=== PATIENT | male | born 1960 | race Hispanic/Latino ===

== ENCOUNTER 2017-08-24 15:57 | Inpatient (IN) | payer SELFPAY ==
[~2017-08-24] VITALS: Ht 172.7 cm; Wt 81.5 kg
[2017-08-24 16:23] LABS: BASOPHILS % (AUTO) 0.4 % (0.0-5.0); EOSINOPHILS % (AUTO) 0.2 % (0.0-8.0); HEMATOCRIT 41.4 % (42-54); LYMPHOCYTES % (AUTO) 5.6 % (21.0-51.0); MEAN CORPUSCULAR HEMOGLOBIN 30.6 pg (27.0-33.0); MEAN CORPUSCULAR HGB CONC 34.1 g/dL (32.0-36.0); MEAN CORPUSCULAR VOLUME 89.9 fL (79-99); MONOCYTES % (AUTO) 5.2 % (3.0-13.0); NEUTROPHILS % (AUTO) 88.6 % (40.0-77.0); PLATELET COUNT (AUTO) 149 K/uL (130-400); RED BLOOD CELL COUNT(AUTO) 4.61 MIL/uL (4.50-6.20); WHITE BLOOD COUNT (AUTO) 8.9 K/uL (4.8-10.8)
[2017-08-24 16:33] LABS: CARBON DIOXIDE 27 mmol/L (21-32); CHLORIDE 103 mmol/L (101-111); CREATININE 1.1 mg/dL (0.5-1.5); GLOMERULAR FILTR. RATE CALC 74 mL/min (>60); GLUCOSE,RANDOM 110 mg/dL (70-105); POTASSIUM 3.6 mmol/L (3.5-5.1); SODIUM SERUM 139 mmol/L (136-145); UREA NITROGEN, BLOOD 16 mg/dL (7-18)
[2017-08-24 16:37] LABS: APPEARANCE,URINE Clear (CLEAR); BILIRUBIN,URINE Negative (NEGATIVE); COLOR,URINE Yellow (YELLOW); GLUCOSE, URINE (UA) Negative (NEGATIVE); KETONES,URINE Negative (NEGATIVE); LEUKOCYTE ESTERASE ,URINE Large (NEGATIVE); NITRATE,URINE Negative (NEGATIVE); OCCULT BLOOD,URINE Moderate (NEGATIVE); PROTEIN,URINE Negative (NEGATIVE); UROBILINOGEN,URINE 0.2 mg/dL (0.2-1.0)
[2017-08-24 16:46] LABS: BACTERIA,URINE Few /HPF (None Seen); SQUAMOUS EPITHELIAL CELL,UR Rare /HPF (0-2)
[2017-08-24 16:47] LABS: MUCUS,URINE Rare LPF (None Seen)
[2017-08-24 16:48] LABS: ALANINE AMINOTRANSFERASE 34 U/L (12-78); ASPARTATE AMINOTRANSFERASE 24 U/L (10-37); BILIRUBIN,TOTAL 0.7 mg/dL (0.2-1.0); CREATINE KINASE MB 1.7 ng/mL (0.5-3.6); CREATINE KINASE, TOTAL 218 U/L (21-232); MYOGLOBIN 50 ng/mL (10-92); TOTAL PROTEIN, SERUM 7.6 g/dL (6.0-8.3); TROPONIN I < 0.04 ng/mL (0.00-0.06)
[2017-08-24 16:51] LABS: INR 0.93 (0.85-1.15); PARTIAL THROMBOPLASTIN TIME 27.3 SEC (26.3-35.5); PROTHROMBIN TIME 9.8 SEC (9.6-11.6)
[2017-08-24] MEDS ORDERED: SODIUM CHLORIDE 0.9% 50 ML IV ONE (17:57)
[2017-08-24] MEDS ORDERED: CEFTRIAXONE SODIUM 1 GM ONE (17:57)
[2017-08-24] MEDS ORDERED: ACETAMINOPHEN 325 MG TAB ONE (18:06)
[2017-08-24] MEDS: MORPHINE SULFATE 2 MG/ML 1ML SYG IVP SCH (20:00)
[2017-08-24] MEDS: SODIUM CHLORIDE 0.9% 1000ML 1,000 ML IV SCH ×2 (20:18→20:30)
[2017-08-24] MEDS ORDERED: TAMSULOSIN HCL 0.4 MG CAP.ER.24H ONE (20:27)
[2017-08-24] MEDS: TAMSULOSIN HCL 0.4 MG CAP.ER.24H PO SCH (20:30)
[2017-08-24] MEDS ORDERED: IBUPROFEN 400 MG TABLET PO PRN (20:30)
[2017-08-24] MEDS ORDERED: ONDANSETRON HCL MDV 20ML 2 MG/ML VIAL IV PRN (20:30)
[2017-08-24] MEDS ORDERED: LACTULOSE 20 GM/30 ML UDCUP PO PRN (20:30)
[2017-08-24] MEDS ORDERED: CEFTRIAXONE 2GM+NS 100ML 100 ML IV SCH (20:30)
[2017-08-24] MEDS ORDERED: HYDRALAZINE HCL 20 MG/ML VIAL IV PRN (20:30)
[2017-08-24] MEDS ORDERED: MORPHINE SULFATE 2 MG/ML 1ML SYG IV PRN (20:30)
[2017-08-24] MEDS: CEFTRIAXONE SODIUM 2 GM VIAL IVP SCH (20:45)
[2017-08-24] MEDS: FAMOTIDINE 20MG TAB 20 MG TAB PO SCH (21:00)
[2017-08-24] MEDS ORDERED: FAMOTIDINE 20MG TAB 20 MG TAB ONE (22:50)
[2017-08-24] MEDS ORDERED: SODIUM CHLORIDE 0.9% 1000ML 1,000 ML IV ONE (22:50)
[2017-08-24] MEDS ORDERED: IBUPROFEN 400 MG TABLET ONE (22:58)
[2017-08-25 06:13] LABS: MEAN CORPUSCULAR HEMOGLOBIN 31.5 pg (27.0-33.0); MEAN CORPUSCULAR HGB CONC 34.7 g/dL (32.0-36.0); MEAN CORPUSCULAR VOLUME 90.7 fL (79-99); PLATELET COUNT (AUTO) 115 K/uL (130-400); WHITE BLOOD COUNT (AUTO) 7.7 K/uL (4.8-10.8)
[2017-08-25] MEDS: SODIUM CHLORIDE 0.9% 1000ML 1,000 ML IV SCH ×3 (06:18→21:07)
[2017-08-25 06:19] LABS: MAGNESIUM 1.9 mg/dL (1.80-2.40); POTASSIUM 3.3 mmol/L (3.5-5.1)
[2017-08-25 07:08] LABS: HEMOGLOBIN A1C 6.1 % (4.0-6.0)
[2017-08-25] MEDS: MORPHINE SULFATE 2 MG/ML 1ML SYG IVP SCH ×3 (08:00→19:00)
[2017-08-25] MEDS ORDERED: ENOXAPARIN SODIUM 40 MG/0.4 ML SYRINGE SQ ONE (08:03)
[2017-08-25] MEDS ORDERED: FAMOTIDINE 20MG TAB 20 MG TAB ONE (08:53)
[2017-08-25] MEDS: ENOXAPARIN SODIUM 40 MG/0.4 ML SYRINGE SQ SCH (09:00)
[2017-08-25] MEDS: FAMOTIDINE 20MG TAB 20 MG TAB PO SCH ×2 (09:00→21:03)
[2017-08-25 12:00] VITALS: BP 108/70
[2017-08-25] MEDS ORDERED: LEVOFLOXACIN 500 MG/D5W 100 ML 100 ML IV SCH (12:15)
[2017-08-25] MEDS: TAMSULOSIN HCL 0.4 MG CAP.ER.24H PO SCH (15:05)
[2017-08-25 16:00] VITALS: BP 113/73
[2017-08-25] MEDS ORDERED: CEFTRIAXONE SODIUM 1 GM IVP SCH (17:00)
[2017-08-25] MEDS ORDERED: FLU VACC QS2017-18 36MOS UP/PF 60 MCG/0.5 ML ML IM ONE (18:00)
[2017-08-25 19:11] VITALS: BP 117/74
[2017-08-25] MEDS: CEFTRIAXONE SODIUM 2 GM VIAL IVP SCH (21:03)
[2017-08-26] MEDS: SODIUM CHLORIDE 0.9% 1000ML 1,000 ML IV SCH ×3 (02:18→22:18)
[2017-08-26 03:19] VITALS: BP 104/63
[2017-08-26] MEDS: MORPHINE SULFATE 2 MG/ML 1ML SYG IVP SCH ×5 (04:00→20:00)
[2017-08-26 04:34] LABS: BASOPHILS % (AUTO) 0.5 % (0.0-5.0); EOSINOPHILS % (AUTO) 1.7 % (0.0-8.0); HEMATOCRIT 38.9 % (42-54); LYMPHOCYTES % (AUTO) 17.1 % (21.0-51.0); MEAN CORPUSCULAR HEMOGLOBIN 30.4 pg (27.0-33.0); MEAN CORPUSCULAR HGB CONC 33.7 g/dL (32.0-36.0); MEAN CORPUSCULAR VOLUME 90.4 fL (79-99); MONOCYTES % (AUTO) 17.1 % (3.0-13.0); NEUTROPHILS % (AUTO) 63.6 % (40.0-77.0); PLATELET COUNT (AUTO) 107 K/uL (130-400); RED CELL DISTRIBUTION WIDTH 13.9 % (11.0-15.5); WHITE BLOOD COUNT (AUTO) 5.1 K/uL (4.8-10.8)
[2017-08-26 04:48] LABS: POTASSIUM 3.9 mmol/L (3.5-5.1)
[2017-08-26 08:00] VITALS: BP 111/61
[2017-08-26] MEDS: FAMOTIDINE 20MG TAB 20 MG TAB PO SCH ×2 (09:33→20:39)
[2017-08-26] MEDS: TAMSULOSIN HCL 0.4 MG CAP.ER.24H PO SCH (09:33)
[2017-08-26] MEDS: ENOXAPARIN SODIUM 40 MG/0.4 ML SYRINGE SQ SCH (09:34)
[2017-08-26 12:00] VITALS: BP 109/61
[2017-08-26 16:00] VITALS: BP 116/74
[2017-08-26 19:18] VITALS: BP 114/69
[2017-08-26] MEDS: CEFTRIAXONE SODIUM 2 GM VIAL IVP SCH (20:39)
[2017-08-26 23:21] VITALS: BP 121/77
[2017-08-27 03:16] VITALS: BP 108/65
[2017-08-27] MEDS: MORPHINE SULFATE 2 MG/ML 1ML SYG IVP SCH ×2 (04:00)
[2017-08-27 05:03] LABS: BASOPHILS % (AUTO) 0.7 % (0.0-5.0); EOSINOPHILS % (AUTO) 2.7 % (0.0-8.0); HEMATOCRIT 37.2 % (42-54); LYMPHOCYTES % (AUTO) 22.5 % (21.0-51.0); MEAN CORPUSCULAR HEMOGLOBIN 31.1 pg (27.0-33.0); MEAN CORPUSCULAR HGB CONC 34.5 g/dL (32.0-36.0); MEAN CORPUSCULAR VOLUME 90.2 fL (79-99); MONOCYTES % (AUTO) 20.1 % (3.0-13.0); NUCLEATED RED BLOOD CELLS 0.1 % (0.0-0.19); PLATELET COUNT (AUTO) 125 K/uL (130-400); RED BLOOD CELL COUNT(AUTO) 4.13 MIL/uL (4.50-6.20); RED CELL DISTRIBUTION WIDTH 14.1 % (11.0-15.5); WHITE BLOOD COUNT (AUTO) 4.2 K/uL (4.8-10.8)
[2017-08-27 05:14] LABS: POTASSIUM 3.8 mmol/L (3.5-5.1)
[2017-08-27 07:00] VITALS: BP 121/70
[2017-08-27] MEDS: FAMOTIDINE 20MG TAB 20 MG TAB PO SCH ×2 (09:33→20:28)
[2017-08-27] MEDS: TAMSULOSIN HCL 0.4 MG CAP.ER.24H PO SCH (09:33)
[2017-08-27] MEDS: ENOXAPARIN SODIUM 40 MG/0.4 ML SYRINGE SQ SCH (09:34)
[2017-08-27 11:00] VITALS: BP 108/67
[2017-08-27] MEDS ORDERED: MORPHINE SULFATE 2 MG/ML 1ML SYG IVP PRN (12:00)
[2017-08-27 16:00] VITALS: BP 108/66
[2017-08-27] MEDS: SODIUM CHLORIDE 0.9% 1000ML 1,000 ML IV SCH ×2 (18:08→18:18)
[2017-08-27 19:33] VITALS: BP 104/58
[2017-08-27] MEDS: CEFTRIAXONE SODIUM 2 GM VIAL IVP SCH (20:29)
[2017-08-27 23:37] VITALS: BP 132/86
[2017-08-28 03:53] VITALS: BP 109/70
[2017-08-28 04:13] LABS: BASOPHILS % (AUTO) 0.6 % (0.0-5.0); EOSINOPHILS % (AUTO) 3.9 % (0.0-8.0); HEMATOCRIT 37.8 % (42-54); LYMPHOCYTES % (AUTO) 27.2 % (21.0-51.0); MEAN CORPUSCULAR HGB CONC 34.5 g/dL (32.0-36.0); MEAN CORPUSCULAR VOLUME 89.9 fL (79-99); MONOCYTES % (AUTO) 17.5 % (3.0-13.0); NEUTROPHILS % (AUTO) 50.8 % (40.0-77.0); PLATELET COUNT (AUTO) 150 K/uL (130-400); WHITE BLOOD COUNT (AUTO) 3.7 K/uL (4.8-10.8)
[2017-08-28 04:20] LABS: POTASSIUM 4.1 mmol/L (3.5-5.1)
[2017-08-28] MEDS: SODIUM CHLORIDE 0.9% 1000ML 1,000 ML IV SCH (04:28)
[2017-08-28 07:00] VITALS: BP_SYST 73
[2017-08-28] MEDS: FAMOTIDINE 20MG TAB 20 MG TAB PO SCH (09:36)
[2017-08-28] MEDS: TAMSULOSIN HCL 0.4 MG CAP.ER.24H PO SCH (09:36)
[2017-08-28] MEDS: ENOXAPARIN SODIUM 40 MG/0.4 ML SYRINGE SQ SCH (09:37)
[2017-08-28 11:00] VITALS: BP 111/73
[2017-08-28] MEDS ORDERED: CEPH500C2 PO (14:13)
== END 2017-08-28 14:45 | disposition home or self-care (01) | DRG 872 ==
LOC: EDH 15:57 → OBSVTOIN 15:58 → EDHIP 15:58 → 3DH 08-25 11:06
PROVIDERS: ADMIT Internal Medicine Nephrology; ATTEND Internal Medicine Nephrology
DX: A41.50 Gram-negative sepsis, unspecified (principal); D69.6 Thrombocytopenia, unspecified; N30.00 Acute cystitis without hematuria; N41.0 Acute prostatitis; E66.9 Obesity, unspecified; N20.0 Calculus of kidney; B96.20 Unspecified Escherichia coli [E. coli] as the cause of diseases classified elsewhere; N50.811 Right testicular pain; N50.812 Left testicular pain; Z83.3 Family history of diabetes mellitus; Z68.27 Body mass index [BMI] 27.0-27.9, adult; Z28.21 Immunization not carried out because of patient refusal
CPT/HCPCS: 36415; 71045; 74176; 80048; 80053; 80061; 81001; 82270; 82550; 82553; 83036; 83605; 83735; 83874; 84484; 85025; 85027; 85610; 85730; 87040; 87088; 87186; 87804; 93005; A4218; J0696; J1650; J1956; J7030